=== PATIENT | male | born 1945 | race Caucasian/White ===

== ENCOUNTER → 2018-01-02 15:47 | Outpatient (CLI) | payer MEDICARE, BC ==
[2016-04-20 07:40] VITALS: BMI 23.6
[~2018-01-02 15:47] MED LIST: ACETAMINOPHEN500 M1 PO; BAYER CHEWABLE81 MG PO; LOVASTATIN20 MG PO; MULTIPLE VITAMI1 TA1 PO; PLAVIX75 MG PO; PRINIVIL20 MG PO
[2018-01-02 16:24] LABS: CREATININE - SERUM 1.6 mg/dL (0.6-1.3)
== END | disposition home or self-care (01) ==
LOC: D.CT 15:47
PROVIDERS: Radiology Diagnostic Radiology
DX: I73.9 Peripheral vascular disease, unspecified (principal)